=== PATIENT | male | born 1950 | race Caucasian/White ===

== ENCOUNTER 2016-04-30 21:30 | Emergency (ER) | payer OTHER ==
[~2016-04-30] VITALS: Ht 182.9 cm; Wt 113.4 kg
--- NOTE | 2016-05-01 00:27 | ED UPPER/LOWER EXTREMITY COMPL ---
History of Present Illness General Chief Complaint: Lower Extremity Problems Stated Complaint: LEFT LEG NUMBNESS Source: patient Exam Limitations: no limitations Vital Signs & Intake/Output Vital Signs & Intake/Output Vital Signs Date Time Temp Pulse Resp B/P Pulse O2 O2 Flow FiO2 Ox Delivery Rate 04/30 2201 97.6 100 18 150/94 97 Room Air ED Intake and Output 05/01 0000 02 1200 Intake Total Output Total Balance Patient 250 lb Weight Allergies Coded Allergies: MDX - Penicillin V (UNKNOWN 12/24/14) Reconcile Medications Cyclobenzaprine HCl 10 MG TABLET 1 TAB PO 4 TIMES/DAY PRN MUSCLE SPASM Oxycodone HCl/Acetaminophen (Percocet 5-325 MG Tablet) 5 MG-325 MG TABLET 1 TAB PO 4XDP PRN PAIN six...[id number] Tramadol HCl (Ultram) 50 MG TABLET 1 TAB PO BIDP pain thirty...[id number] Triage Note: PT TO TRIAGE WITH C/O LEFT LOWER EXTREMITY PAIN CONSTANT UP TO 9/10 AND SWELLING TO L KNEE SINCE SUNDAY. PT DENIES ANY INJURY. HX HTN, HIGH CHOL, DIABETES. VSS. Triage Nurses Notes Reviewed? yes Onset: Gradual Duration: day(s):, waxing and waning Timing: recent history Severity: moderate Pain/Injury Location: Left: Leg. Method of Injury: unknown Modifying Factors: Improves With: rest. Worsens With: movement. Associated Symptoms: left lateral leg pain HPI: 66 yo gentleman with 3 days of left lateral leg pain. "I can't get any sleep." He does not recall any trauma. He has been taking ibuprofen without relief. He notes chronic left knee pain. He is otherwise well. Past History Travel History Traveled to [place] past 21 day No Medical History Any Pertinent Medical History? see below for history Cardiovascular: hypertension, hyperlipidemia Renal: KIDNEY STONES Endocrine: diabetes Surgical History Surgical History: N Psychosocial History What is your primary language Greek Tobacco Use: Never used Family History Hx Contributory? No Review of Systems Review of Systems Constitutional: Reports: no symptoms. EENTM: Reports: no symptoms. Respiratory: Reports: no symptoms. Cardiovascular: Reports: no symptoms. Gastrointestinal/Abdominal: Reports: no symptoms. Genitourinary: Reports: no symptoms. Musculoskeletal: Reports: no symptoms. Skin: Reports: no symptoms. Neurological/Psychological: Reports: no symptoms. Hematologic/Endocrine: Reports: no symptoms. Immunological: Reports: no symptoms. All Other Systems: Reviewed and Negative Physical Exam Physical Exam General Appearance: well developed/nourished, mild distress Head: atraumatic Eyes: Bilateral: normal appearance. Ears, Nose, Throat: normal pharynx, normal ENT inspection, hearing grossly normal Neck: normal inspection, supple Cardiovascular/Respiratory: regular rate/rhythm Back: normal inspection Leg Left: mild tenderness in muscle spasm in the left lateral thigh area. Arthritic changes in the left knee without significant effusion. Ligaments are intact. Skin: intact, normal color, warm/dry Lymphatic: no anterior cervical yoan Progress Differential Diagnosis: iliotibial band syndrome versus muscle spasm versus other. Plan of Care: Bedside ultrasound by myself reveals no obvious DVT. I referred the patient to have an ultrasound in the department of radiology early this morning. Departure Departure Disposition: HOME OR SELF CARE Condition: Stable Clinical Impression Primary Impression: Iliotibial band syndrome Referrals: JAMMIE WHITE,EDGAR Cavaanugh (PCP/Family) Departure Forms: Customer Survey General Discharge Information Prescriptions: Current Visit Scripts Oxycodone HCl/Acetaminophen (Percocet 5-325 MG Tablet) 1 TAB PO 4XDP PRN PAIN #6 TAB six...[id number] Cyclobenzaprine HCl 1 TAB PO 4 TIMES/DAY PRN MUSCLE SPASM #30 TAB Ref 1 Tramadol HCl (Ultram) 1 TAB PO BIDP #30 TAB thirty...[id number] Comments Bedside ultrasound by ED physician reveals no obvious large DVT. I discussed with them at great length. He will return tomorrow for an ultrasound in the department of radiology. I filled out the requisition form and explained it to him. I gave him supportive measures for his pain. I advocated a follow-up with his primary care doctor.
[2016-05-01] MEDS ORDERED: ULTRAM50 M1 PO (00:34)
[2016-05-01] MEDS ORDERED: CYCLOBENZAPRINE10 M1 PO (00:34)
[2016-05-01] MEDS ORDERED: PERCOCET 5-3251 EACH PO (00:34)
[2016-05-01 01:12] VITALS: BP 152/73
== END 2016-05-01 01:13 ==
LOC: ERH 21:30
DX: M76.32 Iliotibial band syndrome, left leg (principal)